=== PATIENT | female | born 1960 | race Caucasian/White ===

== ENCOUNTER 2016-08-23 05:37 | Day surgery (SDC) | payer OTHER ==
[~2016-08-23] VITALS: Ht 157.5 cm; Wt 67.3 kg
[~2016-08-23 05:37] MED LIST: ALBU8.5H IH; FLUT16H NASAL; HYDR-305 PO; MELO-273 PO; MOME13HF IH; PRED10 PO
[2016-08-23] MEDS ORDERED: SODIUM CHLORIDE 0.9% 1,000 ML IV ONE ×2 (05:45→06:15)
[2016-08-23] MEDS ORDERED: MIDAZOLAM HCL 2 MG/2 ML VIAL ONE (08:02)
[2016-08-23] MEDS ORDERED: FentaNYL CITRATE-PF 100 MCG/2 ML VIAL ONE (08:02)
[2016-08-23] MEDS ORDERED: MethylPREDNISolone SOD SUCC 125 MG/2 ML VIAL IVP ONE (08:30)
[2016-08-23] MEDS ORDERED: LIDOCAINE HCL 2% 30 ML JELLY TP ONE (17:56)
[2016-08-23] MEDS ORDERED: LIDOCAINE HCL 4% 50 ML SOLUTION TP ONE (17:56)
[2016-08-23] MEDS ORDERED: BENZOCAINE 20% 50 MCG/SPRAY 57 GM TP ONE (17:56)
[2016-08-23] MEDS ORDERED: OXYGEN THERAPY IH SCH (20:00)
== END 2016-08-23 10:15 | disposition home or self-care (01) ==
LOC: SURGERY 05:37
PROVIDERS: ATTEND Internal Medicine Critical Care Medicine
DX: J38.4 Edema of larynx (principal); B37.0 Candidal stomatitis; F41.9 Anxiety disorder, unspecified; F32.9 Major depressive disorder, single episode, unspecified; F17.210 Nicotine dependence, cigarettes, uncomplicated; J44.9 Chronic obstructive pulmonary disease, unspecified
CPT/HCPCS: 31623; 31624; 71010; 87015 ×2; 87070; 87101; 87205; 87220; 94640; J2250; J2930; J3010; J7030; 88108; 88305; 88312

== ENCOUNTER 2017-09-08 06:02 | Day surgery (SDC) | payer MEDICARE, OTHER ==
[~2017-09-08] VITALS: Ht 157.5 cm; Wt 80.9 kg
[~2017-09-08 06:02] MED LIST changes: -ALBU8.5H IH; +ALBU8.5H8 IH; +MELO-107 PO; -MELO-273 PO
[2017-09-08] MEDS ORDERED: LIDOCAINE HCL 4% 50 ML SOLUTION TP ONE (06:03)
[2017-09-08] MEDS ORDERED: BENZOCAINE 20% 50 MCG/SPRAY 57 GM TP ONE (06:03)
[2017-09-08] MEDS ORDERED: LIDOCAINE HCL 2% 30 ML JELLY TP ONE (06:03)
[2017-09-08] MEDS ORDERED: SODIUM CHLORIDE 0.9% 1,000 ML IV ONE ×2 (06:34→07:00)
[2017-09-08] MEDS ORDERED: MIDAZOLAM HCL 2 MG/2 ML VIAL ONE (07:59)
[2017-09-08] MEDS ORDERED: FentaNYL CITRATE-PF 100 MCG/2 ML VIAL ONE (08:00)
[2017-09-08] MEDS ORDERED: MethylPREDNISolone SOD SUCC 125 MG/2 ML VIAL IVP ONE (08:45)
[2017-09-08] MEDS ORDERED: MethylPREDNISolone SOD SUCC 125 MG/2 ML VIAL ONE (09:04)
[2017-09-08] MEDS ORDERED: OXYGEN THERAPY IH SCH (20:00)
== END 2017-09-08 10:10 | disposition home or self-care (01) ==
LOC: SURGERY 06:02
PROVIDERS: ATTEND Internal Medicine Critical Care Medicine
DX: J38.4 Edema of larynx (principal); B37.0 Candidal stomatitis; J84.111 Idiopathic interstitial pneumonia, not otherwise specified; J43.9 Emphysema, unspecified; F32.9 Major depressive disorder, single episode, unspecified; F41.9 Anxiety disorder, unspecified; Z87.891 Personal history of nicotine dependence; Z79.52 Long term (current) use of systemic steroids; Z79.891 Long term (current) use of opiate analgesic; Z88.6 Allergy status to analgesic agent; Z98.890 Other specified postprocedural states; Z79.899 Other long term (current) drug therapy
CPT/HCPCS: 31623; 31624; 71045; 87015; 87070; 87205; 87220; 88108; 88312; J2250; J2930; J3010; J7030

== ENCOUNTER 2019-11-26 06:00 | Day surgery (SDC) | payer MEDICARE, OTHER ==
[~2019-11-26] VITALS: Ht 157.5 cm; Wt 72.7 kg
[~2019-11-26 06:00] MED LIST changes: -HYDR-305 PO; +HYDR-4455 PO; +SODIUM CHLORIDE 0.9% 0 ML ONE; +SODIUM CHLORIDE 0.9% 1,000 ML IV ONE
[2019-11-26] MEDS ORDERED: ALBUTEROL SULFATE 2.5 MG/0.5 ML NEB SOLUTION NEB ONE (06:01)
[2019-11-26] MEDS ORDERED: LIDOCAINE 4% 50 ML SOLUTION TP ONE (06:01)
[2019-11-26] MEDS ORDERED: LIDOCAINE 2% 30 ML JELLY TP ONE (06:01)
[2019-11-26] MEDS ORDERED: BENZOCAINE 20% 50 MCG/SPRAY 57 GM TP ONE (06:01)
[2019-11-26] MEDS ORDERED: SODIUM CHLORIDE 0.9% 1,000 ML ONE (06:34)
[2019-11-26] MEDS ORDERED: SODIUM CHLORIDE 0.9% 1,000 ML IV ONE (06:50)
[2019-11-26] MEDS ORDERED: MIDAZOLAM HCL 2 MG/2 ML VIAL ONE (08:03)
[2019-11-26] MEDS ORDERED: FentaNYL CITRATE-PF 100 MCG/2 ML VIAL ONE (08:03)
[2019-11-26] MEDS ORDERED: MethylPREDNISolone SOD SUCC 125 MG/2 ML VIAL IVP ONE (08:45)
[2019-11-26] MEDS ORDERED: MethylPREDNISolone SOD SUCC 125 MG/2 ML VIAL ONE (08:48)
[2019-11-26] MEDS ORDERED: OXYGEN THERAPY IH SCH (20:00)
== END 2019-11-26 09:55 | disposition home or self-care (01) ==
LOC: SURGERY 06:00
PROVIDERS: ATTEND Internal Medicine Critical Care Medicine
DX: J38.4 Edema of larynx (principal); B37.0 Candidal stomatitis; Z11.59 Encounter for screening for other viral diseases
CPT/HCPCS: 31623; 31624; 71045; 87015; 87070; 87101; 87205; 87206; 87220; 88108; 88312; J2250; J2930; J3010; J7030; U0003; J7613; Z7610

== ENCOUNTER → 2020-12-11 | Day surgery (SDC) | payer OTHER ==
[2020-12-07 13:56] LABS: COVID AG,FIA SOURCE NASOPHARYNGEAL
== END | disposition home or self-care (01) ==
LOC: SURGERY 05:00
PROVIDERS: ATTEND Internal Medicine Critical Care Medicine
DX: R05 Cough (principal); Z53.8 Procedure and treatment not carried out for other reasons
CPT/HCPCS: 87426; C9803; J7030

== ENCOUNTER 2021-01-10 06:14 | Day surgery (SDC) | payer OTHER ==
[2021-01-08 11:29] LABS: COVID AG,FIA SOURCE NASOPHARYNGEAL
[~2021-01-10] VITALS: Ht 157.5 cm; Wt 79.5 kg
[~2021-01-10 06:14] MED LIST changes: +BACL10TA PO; +BUDE10.2 IH; +DOXY-354 PO; +DULO30CA89 PO; +FAMO20 PO; -FLUT16H NASAL; +GABA-1181 PO; +HYDR-4072 PO; -HYDR-4455 PO; -MELO-107 PO; -MOME13HF IH; +OMEP20 PO; -PRED10 PO; -SODIUM CHLORIDE 0.9% 0 ML ONE; -SODIUM CHLORIDE 0.9% 1,000 ML IV ONE
[2021-01-10] MEDS ORDERED: SODIUM CHLORIDE 0.9% 1,000 ML ONE (06:25)
[2021-01-10] MEDS ORDERED: SODIUM CHLORIDE 0.9% 1,000 ML IV ONE (06:30)
[2021-01-10] MEDS ORDERED: MIDAZOLAM HCL 5 MG/ML VIAL ONE (07:46)
[2021-01-10] MEDS ORDERED: FentaNYL CITRATE PF 100 MCG/2 ML VIAL ONE (07:46)
[2021-01-10] MEDS ORDERED: MethylPREDNISolone SOD SUCC 125 MG/2 ML VIAL IVP ONE (09:15)
[2021-01-10] MEDS ORDERED: MethylPREDNISolone SOD SUCC 125 MG/2 ML VIAL ONE (09:55)
[2021-01-10] MEDS ORDERED: OXYGEN THERAPY IH SCH (20:00)
== END 2021-01-10 11:20 | disposition home or self-care (01) ==
LOC: SURGERY 06:14
PROVIDERS: ATTEND Internal Medicine Critical Care Medicine
DX: J38.4 Edema of larynx (principal); B37.0 Candidal stomatitis; J44.9 Chronic obstructive pulmonary disease, unspecified; Z88.6 Allergy status to analgesic agent; Z79.899 Other long term (current) drug therapy; Z98.890 Other specified postprocedural states
CPT/HCPCS: 31623; 31624; 71045; 87015; 87070; 87101; 87205; 87206; 87220; 87426; 88108; 88184; 88185; 88312; C9803; J2250; J2930; J3010; J7030

== ENCOUNTER 2022-02-06 05:34 | Day surgery (SDC) | payer OTHER ==
[~2022-02-06] VITALS: Ht 157.5 cm; Wt 72.9 kg
[~2022-02-06 05:34] MED LIST changes: +DULO-114 PO; -DULO30CA89 PO
[2022-02-06] MEDS ORDERED: LIDOCAINE 4% 50 ML SOLUTION TP ONE (05:35)
[2022-02-06] MEDS ORDERED: BENZOCAINE 20% 50 MCG/SPRAY 57 GM TP ONE (05:35)
[2022-02-06] MEDS ORDERED: LIDOCAINE 2% 11 ML JELLY TP ONE (05:35)
[2022-02-06] MEDS ORDERED: SODIUM CHLORIDE 0.9% 1,000 ML IV ONE (06:30)
[2022-02-06 07:02] LABS: COVID AG,FIA SOURCE NASAL SWAB
[2022-02-06] MEDS ORDERED: PROM6.2514 PO (07:20)
[2022-02-06] MEDS ORDERED: PRED-729 PO (07:20)
[2022-02-06] MEDS ORDERED: ESCI-8 PO (07:20)
[2022-02-06] MEDS ORDERED: SODIUM CHLORIDE 0.9% 1,000 ML ONE (07:31)
[2022-02-06] MEDS ORDERED: FentaNYL CITRATE PF 100 MCG/2 ML VIAL ONE (08:36)
[2022-02-06] MEDS ORDERED: MIDAZOLAM HCL 5 MG/ML VIAL ONE (08:37)
[2022-02-06] MEDS ORDERED: MethylPREDNISolone SOD SUCC 125 MG/2 ML VIAL ONE (09:21)
[2022-02-06] MEDS ORDERED: MethylPREDNISolone SOD SUCC 125 MG/2 ML VIAL IVP ONE (09:30)
[2022-02-06] MEDS ORDERED: OXYGEN THERAPY IH SCH (20:00)
== END 2022-02-06 11:11 | disposition still patient (30) ==
LOC: SURGERY 05:34
PROVIDERS: ATTEND Internal Medicine Critical Care Medicine
DX: J38.4 Edema of larynx (principal); B37.0 Candidal stomatitis; F17.210 Nicotine dependence, cigarettes, uncomplicated; Z79.899 Other long term (current) drug therapy; Z98.890 Other specified postprocedural states; Z20.822 Contact with and (suspected) exposure to COVID-19
CPT/HCPCS: 31623; 87206; 87101; 87220; 87070; 88108; 88305; 88312; 31624; 71045; 87015; 87426; J3010; J2930; J2250; Q9967; J7030; C9803; Z7610

== ENCOUNTER 2022-12-06 06:51 | Day surgery (SDC) | payer OTHER ==
[~2022-12-06] VITALS: Ht 157.5 cm; Wt 72.7 kg
[~2022-12-06 06:51] MED LIST changes: +ESCI-8 PO; -FAMO20 PO; +PRED-729 PO; +PROM6.2514 PO
[2022-12-06] MEDS ORDERED: LIDOCAINE 2% 11 ML JELLY TP ONE (06:52)
[2022-12-06] MEDS ORDERED: LIDOCAINE 4% 50 ML SOLUTION TP ONE (06:52)
[2022-12-06] MEDS ORDERED: BENZOCAINE 20% 50 MCG/SPRAY 57 GM TP ONE (06:52)
[2022-12-06] MEDS ORDERED: ALBUTEROL SULFATE 2.5 MG/0.5 ML NEB SOLUTION NEB ONE (06:52)
[2022-12-06] MEDS ORDERED: SODIUM CHLORIDE 0.9% 1,000 ML ONE (07:35)
[2022-12-06] MEDS ORDERED: MONT-35 PO (07:54)
[2022-12-06] MEDS ORDERED: ESCI20TA87 PO (07:58)
[2022-12-06] MEDS ORDERED: SODIUM CHLORIDE 0.9% 1,000 ML IV ONE (08:00)
[2022-12-06] MEDS ORDERED: BACL20TA PO (08:00)
[2022-12-06] MEDS ORDERED: FLUT16SP NASAL (08:04)
[2022-12-06] MEDS ORDERED: MIDAZOLAM HCL 2 MG/2 ML VIAL ONE (08:07)
[2022-12-06] MEDS ORDERED: FentaNYL CITRATE PF 100 MCG/2 ML VIAL ONE (08:07)
[2022-12-06] MEDS ORDERED: BUDE10.7 IH (08:13)
[2022-12-06] MEDS ORDERED: MethylPREDNISolone SOD SUCC 125 MG/2 ML VIAL ONE (10:18)
[2022-12-06 10:25] VITALS: PULSE 99; RESP 16; O2SAT 100
[2022-12-06] MEDS ORDERED: MethylPREDNISolone SOD SUCC 125 MG/2 ML VIAL IVP ONE (10:30)
== END 2022-12-06 12:10 | disposition home or self-care (01) ==
LOC: SURGERY 06:51
PROVIDERS: ATTEND Internal Medicine Critical Care Medicine
DX: J38.4 Edema of larynx (principal); B37.0 Candidal stomatitis; Z79.82 Long term (current) use of aspirin; Z88.6 Allergy status to analgesic agent; Z98.890 Other specified postprocedural states; J43.9 Emphysema, unspecified; Z79.899 Other long term (current) drug therapy
CPT/HCPCS: 31623; 88112; 87206; 87101; 87220; 87070; 31624; 94640; 71045; 87015; J3010; J2250; J2930; Q9967; J7030; J7613; Z7610